=== PATIENT | female | born 1990 | race Caucasian/White ===

== ENCOUNTER 2022-03-08 09:06 | Outpatient (CLI) | payer BC, SELFPAY ==
[2022-03-08 14:37] LABS: Chloride* 100 mmol/L (96-114)
[2022-03-08 14:38] LABS: Potassium* 4.7 mmol/L (3.6-5.1); Sodium* 138 mmol/L (135-149)
[2022-03-08 14:40] LABS: Carbon Dioxide* 28 mmol/L (20-32); Creatinine* 0.8 mg/dL (0.5-1.5); Estimated Glomerular Filt Rate 100 ml/min
[2022-03-08 14:41] LABS: Blood Urea Nitrogen* 37 mg/dL (5-24); Calcium* 9.8 mg/dL (8.4-10.6); Glucose* 95 mg/dL (60-115)
== END 2022-03-08 09:07 | disposition home or self-care (01) ==
PROVIDERS: PCP Family Medicine; Visit Provider Family Medicine
DX: Z00.00 Encounter for general adult medical examination without abnormal findings (principal); Z13.1 Encounter for screening for diabetes mellitus; Z12.4 Encounter for screening for malignant neoplasm of cervix
CPT/HCPCS: 80048; 87624; 88175